=== PATIENT | female | born 1940 | race Hispanic/Latino ===

== ENCOUNTER 2020-09-23 09:30 | Observation (INO) | payer MEDICARE ==
[~2020-09-23] VITALS: Ht 152.4 cm; Wt 69.4 kg
[2020-09-23 10:43] LABS: BASOPHILS % (AUTO) 0.8 % (0.0-5.0); EOSINOPHILS % (AUTO) 2.6 % (0.0-8.0); HEMATOCRIT 33.7 % (36-48); MEAN CORPUSCULAR HEMOGLOBIN 26.9 pg (27.0-33.0); MEAN CORPUSCULAR VOLUME 83.8 fL (79-99); MONOCYTES % (AUTO) 8.2 % (3.0-13.0); NEUTROPHILS % (AUTO) 56.9 % (40.0-77.0); PLATELET COUNT (AUTO) 199 K/uL (130-400); RED BLOOD CELL COUNT(AUTO) 4.02 MIL/uL (4.00-5.50); RED CELL DISTRIBUTION WIDTH 13.2 % (11.0-15.5); WHITE BLOOD COUNT (AUTO) 8.6 K/uL (4.8-10.8)
[2020-09-23 10:50] LABS: CREATININE 1.5 mg/dL (0.5-1.5); POTASSIUM 5.2 mmol/L (3.5-5.1)
[2020-09-23 10:54] LABS: ALBUMIN 3.5 g/dL (3.5-5.0); BILIRUBIN,DIRECT 0.1 mg/dL (0.0-0.3); BILIRUBIN,TOTAL 0.2 mg/dL (0.2-1.0); TOTAL PROTEIN, SERUM 7.7 g/dL (6.0-8.3)
[2020-09-23] MEDS ORDERED: CEFTRIAXONE SODIUM 1 GM ONE (11:22)
[2020-09-23] MEDS ORDERED: 1/2 NORMAL SALINE 1,000 ML IV ONE (11:22)
[2020-09-23] MEDS ORDERED: SODIUM CHLORIDE 0.9% 50 ML IV ONE (11:23)
[2020-09-23 11:26] LABS: APPEARANCE,URINE Clear (CLEAR); BILIRUBIN,URINE Negative (NEGATIVE); COLOR,URINE Yellow (YELLOW); GLUCOSE, URINE (UA) 500 mg/dL (NEGATIVE); KETONES,URINE Negative (NEGATIVE); LEUKOCYTE ESTERASE ,URINE Negative (NEGATIVE); NITRATE,URINE Negative (NEGATIVE); OCCULT BLOOD,URINE Negative (NEGATIVE); PH,URINE 5.5 (5.0-8.0); PROTEIN,URINE Negative (NEGATIVE); UROBILINOGEN,URINE 0.2 mg/dL (0.2-1.0)
[2020-09-23 11:37] LABS: BACTERIA,URINE None Seen /HPF (None Seen); RBC,URINE 0-1 /HPF (0-1); SQUAMOUS EPITHELIAL CELL,UR Few /HPF (0-2); WBC,URINE 0-1 /HPF (0-1)
[2020-09-23] MEDS ORDERED: METRONIDAZOLE 500MG/100ML BAG 100 ML ONE (11:52)
[2020-09-23] MEDS ORDERED: 1/2 NORMAL SALINE 1,000 ML IV SCH (12:45)
[2020-09-23] MEDS ORDERED: LISINOPRIL 20 MG TABLET ONE (13:58)
[2020-09-23] MEDS ORDERED: METOPROLOL TARTRATE 50 MG TAB ONE (13:58)
[2020-09-23 17:30] VITALS: BP 171/46
[2020-09-23] MEDS ORDERED: CILO100T PO (18:45)
[2020-09-23] MEDS ORDERED: FURO40TA5 PO (18:45)
[2020-09-23] MEDS ORDERED: ROSU10TA28 PO (18:45)
[2020-09-23] MEDS ORDERED: LISI20TA24 PO (18:45)
[2020-09-23] MEDS ORDERED: INSU300I SQ (18:45)
[2020-09-23] MEDS ORDERED: GLIP10TA9 PO (18:45)
[2020-09-23] MEDS ORDERED: METO50TA18 PO (18:45)
[2020-09-23] MEDS ORDERED: SEMA1PEN3 SQ (18:45)
[2020-09-23 20:24] VITALS: BP 204/65
[2020-09-24 00:24] VITALS: BP 183/49
[2020-09-24 04:28] VITALS: BP 157/53
[2020-09-24 05:16] LABS: BASOPHILS % (AUTO) 0.9 % (0.0-5.0); EOSINOPHILS % (AUTO) 3.7 % (0.0-8.0); HEMATOCRIT 34.5 % (36-48); LYMPHOCYTES % (AUTO) 32.7 % (21.0-51.0); MEAN CORPUSCULAR HEMOGLOBIN 26.5 pg (27.0-33.0); MEAN CORPUSCULAR HGB CONC 31.3 g/dL (32.0-36.0); MEAN CORPUSCULAR VOLUME 84.8 fL (79-99); NEUTROPHILS % (AUTO) 53.3 % (40.0-77.0); PLATELET COUNT (AUTO) 231 K/uL (130-400); RED BLOOD CELL COUNT(AUTO) 4.07 MIL/uL (4.00-5.50); RED CELL DISTRIBUTION WIDTH 13.1 % (11.0-15.5); WHITE BLOOD COUNT (AUTO) 8.9 K/uL (4.8-10.8)
[2020-09-24 05:26] LABS: CREATININE 1.3 mg/dL (0.5-1.5); POTASSIUM 4.6 mmol/L (3.5-5.1)
[2020-09-24 07:55] VITALS: BP 144/64
[2020-09-24 11:19] VITALS: BP 156/54
[2020-09-24 16:16] VITALS: BP 148/62
== END 2020-09-24 19:06 | disposition home or self-care (01) ==
LOC: EDH 09:30 → EDHIP 09:31 → 3BH 17:25
PROVIDERS: ADMIT Internal Medicine; ATTEND Internal Medicine
DX: R10.11 Right upper quadrant pain (principal); R10.31 Right lower quadrant pain; E11.22 Type 2 diabetes mellitus with diabetic chronic kidney disease; I12.9 Hypertensive chronic kidney disease with stage 1 through stage 4 chronic kidney disease, or unspecified chronic kidney disease; N18.9 Chronic kidney disease, unspecified; D64.9 Anemia, unspecified; I25.10 Atherosclerotic heart disease of native coronary artery without angina pectoris; E78.5 Hyperlipidemia, unspecified; Z90.12 Acquired absence of left breast and nipple; Z79.84 Long term (current) use of oral hypoglycemic drugs; Z79.899 Other long term (current) drug therapy; Z88.0 Allergy status to penicillin
CPT/HCPCS: 36415 ×2; 74176; 80048; 80053; 81001; 82150; 82948 ×4; 83690; 85025 ×2; 87088; 96360; 96361 ×2; 99284; G0378 ×34; J0696; J3490; 80076